=== PATIENT | male | born 1990 | race Caucasian/White ===

== ENCOUNTER 2018-03-02 15:17 | Emergency (ER) | payer BC, OTHER ==
--- NOTE | 2018-03-02 15:32 | PDOC ---
Rapid Medical Evaluation Medical Evaluation: Allergies Allergy/AdvReac Type Severity Reaction Status Date / Time No Known Allergies Allergy Verified 10/17/11 19:07 03/02/18 15:27 I have performed a brief in-person evaluation of this patient. The patient presents with a chief complaint of: right lower leg injury one week ago. pt has swelling, bruising noted to the lower leg with bullae, after applying warm compresses. Pertinent physical exam findings:right lower leg bruising, swelling, bullae noted I have ordered the following:xray right lower leg The patient will proceed to the ED for further evaluation. Discharge Disposition - Referrals Referrals: Mateus Vincent MD [Primary Care Provider] - - Patient Instructions - Post Discharge Activity
[2018-03-02 15:35] VITALS: BP 113/49; PULSE 87; TEMP 97.2; BMI 23.1
--- NOTE | 2018-03-02 18:21 | PDOC ---
History of Present Illness - General Chief Complaint: Abrasion Stated Complaint: SENT BY PCP Time Seen by Provider: 03/02/18 16:12 Exam Limitations: No Limitations - History of Present Illness Initial Comments: 03/02/18 18:34 28-year-old male works as a [place] [employer] presents to the emergency department for evaluation of hematoma to the inner aspect of his right lower leg. Patient states on [place] while on duty he slipped off a step causing abrasion and injury to the inner aspect of right lower leg. Patient states initially area was slightly bruised and tender but as the days went on the swelling and bruising continued. Patient applied a heating pad to his injury last night and woke up with of blister to the center and so decided to come to the ER as per recommendation of his mother and primary care physician. Patient state is up-to-date on tetanus and has no history of immunosuppression including diabetes. Patient also denies any sensory changes distal to injury or limited range of motion. Timing/Duration: constant Severity: mild Associated Symptoms: reports: other Past History - Travel Traveled outside of the country in the last 30 days: No Close contact w/someone who was outside of country & ill: No - Past Medical History Allergies/Adverse Reactions: Allergies Allergy/AdvReac Type Severity Reaction Status Date / Time No Known Allergies Allergy Verified 10/17/11 19:07 Home Medications: Ambulatory Orders Azithromycin [Zithromax Z-JOYCE (5 DAYS) -] 250 mg PO ASDIR #6 tablet NS 03/18/14 Ondansetron [Zofran Odt -] 4 mg SL TID PRN #21 od.tablet 03/18/14 - Suicide/Smoking/Psychosocial Hx Smoking Status: No Smoking History: Never smoked Have you smoked in the past 12 months: No Number of Cigarettes Smoked Daily: 0 Information on smoking cessation initiated: No Hx Alcohol Use: No Drug/Substance Use Hx: No Substance Use Type: None Patient Lives Alone: No Lives with/in: parents Review of Systems - Review of Systems Able to Perform ROS?: No Constitutional: No: Symptoms Reported Respiratory: No: Shortness of Breath Musculoskeletal: Yes: Muscle Pain (inner rt calf) Integumentary: No: Symptoms Reported Neurological: No: Symptoms reported Endocrine: No: Symptoms Reported Hematologic/Lymphatic: No: Symptoms Reported *Physical Exam - Vital Signs Last Vital Signs Temp Pulse Resp BP Pulse Ox 97.2 F L 87 20 113/49 L 99 03/02/18 15:28 03/02/18 15:28 03/02/18 15:28 03/02/18 15:28 03/02/18 15:28 - Physical Exam General Appearance: Yes: Nourished, Appropriately Dressed. No: Apparent Distress Respiratory/Chest: positive: Lungs Clear, Normal Breath Sounds. negative: Respiratory Distress, Accessory Muscle Use Cardiovascular: positive: Regular Rhythm, Regular Rate. negative: Murmur Extremity: negative: Pedal Edema Integumentary: positive: Swelling (Noted a 5 x 8 cm firm slightly tender hematoma above the right ankle medially surrounding skin ecchymotic and slightly edematous), Ecchymosis Neurologic: positive: Motor Strength 5/5 (ambulatory) Moderate Sedation - Procedure Monitoring Vital Signs: Procedure Monitoring Vital Signs Temperature 97.2 F L 03/02/18 15:28 Pulse Rate 87 03/02/18 15:28 Respiratory Rate 20 03/02/18 15:28 Blood Pressure 113/49 L 03/02/18 15:28 O2 Sat by Pulse Oximetry (%) 99 03/02/18 15:28 ED Treatment Course - RADIOLOGY Radiology Studies Ordered: Category Date Time Status SOFT TISSUE EXTREMITY US [US] Stat Ultrasound 03/02/18 18:14 Ordered Medical Decision Making - Medical Decision Making 03/02/18 18:31 Chief complaint: Right lower extremity hematoma with vesicle centered. Patient sustained injury after receiving abrasion and contusion to area while on duty. Patient up-to-date on tetanus Exam: Noted non-circumferential hematoma with surrounding ecchymosis. 2+ pedal pulses full mobility of extremity Plan x-ray ordered to rule out fracture. Will order ultrasound to rule out air and estimate size of accumulation *DC/Admit/Observation/Transfer - Referrals Referrals: Mateus Vincent MD [Primary Care Provider] - - Patient Instructions - Post Discharge Activity
--- NOTE | 2018-03-02 19:35 | PDOC ---
*Physical Exam - Vital Signs Last Vital Signs Temp Pulse Resp BP Pulse Ox 97.2 F L 87 20 113/49 L 99 03/02/18 15:28 03/02/18 15:28 03/02/18 15:28 03/02/18 15:28 03/02/18 15:28 Medical Decision Making - Medical Decision Making Patient signed out to me by LENARD Cuevas, pending ultrasound results Patient currently resting in NAD, denies any complaints US shows 6.5x3.3x2.9 cm hematoma along R lower tibia Findings d/w Dr. Tidwell Will discharge on Keflex and Bactrim in case of possible infection Advised f/u with PCP for further work-up 03/02/18 19:32 *DC/Admit/Observation/Transfer Diagnosis at time of Disposition: Hematoma - Discharge Dispostion Disposition: HOME Condition at time of disposition: Stable Decision to Admit order: No - Prescriptions Prescriptions: Cephalexin [Keflex] 500 mg PO QID #28 capsule Sulfamethoxazole/Trimethoprim [Bactrim Ds -] 1 tab PO BID #14 tablet - Referrals Referrals: Mateus Vincent MD [Primary Care Provider] - 2 Days - Patient Instructions Printed Discharge Instructions: DI for Hematoma (Bruise) Additional Instructions: Thank you for choosing [facility]. It was a pleasure taking care of you. You were seen here for bruise to leg There was no fracture noted on your imaging. Please take the prescribed antibiotics Follow-up with your PCP in 2-3 days. Return to the Emergency Department if your symptoms worsen or persist, you have fever, shortness of breath, chest pain, increased size of bruise, unable to feel extremities, severe pain of extremities or other concerning symptoms. - Post Discharge Activity
== END 2018-03-02 20:35 | disposition home or self-care (01) ==
LOC: JER 15:17
DX: S80.11XA Contusion of right lower leg, initial encounter (principal); W10.8XXA Fall (on) (from) other stairs and steps, initial encounter; Y93.89 Activity, other specified; Y92.512 Supermarket, store or market as the place of occurrence of the external cause; Y99.0 Civilian activity done for income or pay
CPT/HCPCS: 73590-TC-RT-FY; 73610-TC-RT-FY; 73630-TC-RT-FY; 76882-TC-RT-FY; 99281-25